=== PATIENT | female | born 1995 | race Caucasian/White ===

== ENCOUNTER 2023-01-21 09:51 | Outpatient (AMB) | payer OTHER, SELFPAY ==
--- NOTE | 2023-01-21 09:54 | MHC.PC.OV ---
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 She would like therapy reference, too. 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 None Last office visit/CPE: None in 10 yrs Acute issue(s): Blood in stools Hemorrhoids Referral for therapy Migraines. Tension Migraines. Has seen Dr Haddad. Has had PT. Uses Rizatriptan. Depression & Anxiety. Had therapist for loss of her father and would like a therapist. PMHx: Anxiety, Depression, Migraines, Acne, Hemorrhoids,.Pylonidal cyst SurgHx: x 2. FHx: Mom: Bipolar, Depression, Fibromyalgia, CVA, PreDM. Dad: CAD, NE age 34, HTN, HLD. GM Breast CA SocHx: Nonsmoker, EtOH Rare 1-3. No Drugs PFSH Medical History (Updated 01/21/23 @ 10:40 by Allan Perez) delivery delivered delivery delivered Migraines Pilonidal cyst Family History (Updated 01/21/23 @ 10:12 by Anna Dove [facility]) Mother Bipolar 1 disorder Depression Stroke Blood clot embolism due to and not concurrent with molar Fibromyalgia Mental health disorder Father Heart attack High cholesterol Brother Alcoholism Substance use disorder Social History Housing: House Patient Tobacco Use Status: Never used Tobacco e-Cigarette/Vaping Use: Never Used service: No Current occupational status: employed 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 1. Little interest or pleasure in doing things: not at all 2. Feeling down, depressed, or hopeless: several days 3. Trouble falling or staying asleep, or sleeping too much: not at all 4. Feeling tired or having little energy: not at all 5. Poor appetite or overeating: not at all 6. Feeling bad about yourself - or that you are a failure or have let yourself or your family down: several days 7. Trouble concentrating on things, such as reading the newspaper or watching television: several days 8. Moving or speaking so slowly that other people could have noticed. Or the opposite - being so fidgety or restless that you have been moving around a lot more than usual: not at all 9. Thoughts that you would be better off or of hurting yourself in some way: not at all Total score: 3 Source: Developed by Drs. Didier Beckwith, Heike Perkins, Kirill Angelo and colleagues, with an educational fay from [employer]. Thrive Questionnaire I am a: Patient What is your living situation today?: I have a steady place to live Within the past 12 months, did the food you bought not last and you didn't have the money to get more?: Never true Within the past 12 months, did you worry whether your food would run out before you got money to buy more?: Never true Do you have trouble paying for medicines?: No Do you have trouble getting transportation to medical appointments?: No Do you have trouble paying your heating and electricity bill?: No Do you have trouble taking care of your child, family member or friend?: No Do you have trouble with day-to-day activities such as bathing, preparing meals, shopping, managing finances, etc.?: No Are you currently unemployed and looking for a job?: No Are you interested in more education?: No AUDIT C Alcohol Use Questionnaire (AUDIT-C) 1. How often do you have a drink containing alcohol?: Monthly or less 2. How many drinks containing alcohol do you have on a typical day when you are drinking?: 3 or 4 3. How often do you have six or more drinks on one occasion?: Less than monthly Total Score: 3 PRIYANKA-7 AMB Questionnaire PRIYANKA-7 Feeling nervous, anxious, or on edge: 2 = More than half the days Not being able to stop or control worryin = More than half the days Worrying too much about different things: 2 = More than half the days Trouble relaxin = Several days Being so restless that it is hard to sit still: 0 = Not at all Becoming easily annoyed or irritable: 0 = Not at all Feeling afraid as if something awful might happen: 1 = Several days Total PRIYANKA-7 score (0-4 normal; 5-9 mild; 10-14 moderate; 15-21 severe): 8 Source: Developed by Drs. Didier Beckwith, Heike Perkins, Kirill Angelo and colleagues, with an educational fay from [employer]. Physical exam (Primary Care) Vital Signs: Last Vital Signs Pulse 70 01/21/23 09:57 BP 120/64 01/21/23 09:57 Pulse Ox 99 01/21/23 09:57 Oxygen Delivery Method Room Air 01/21/23 09:57 BMI result Body Mass Index 29.3 Tobacco/Smoking Status: Tobacco use Status Tobacco use date assessed 01/21/23 01/21/23 10:19 Patient Tobacco Use Status Never used Tobacco 01/21/23 10:19 e-Cigarette/Vaping Use Never Used 01/21/23 10:19 PHQ-9: PHQ-9 Score PHQ-9: Total score 3 01/21/23 10:21 Assessment and Plan Assessment & Plan (1) Bloody stools: Code(s): K92.1 - Melena Plan: Bloody stools and history of hemorrhoids Check CBC Will refer to GI to rule out any other causes Can consider referral to surgery (2) Migraines: Code(s): G43.909 - Migraine, unspecified, not intractable, without status migrainosus Plan: Fairly stable on rizatriptan and exercises learned in physical therapy She will let me know if she is having any worsening of her condition and we can consider other treatments and or a referral to a new neurologist. (3) Hemorrhoids: Code(s): K64.9 - Unspecified hemorrhoids Plan: As above (4) Depression with anxiety: Code(s): F41.8 - Other specified anxiety disorders Plan: Will refer her to the nurse navigator for connection with a therapist (5) Laboratory exam ordered as part of routine general medical examination: Code(s): Z00.00 - Encounter for general adult medical examination without abnormal findings Plan: Check labs Orders: Orders Comprehensive [place]. Panel Fast Today Z00.00 - Encounter for general adult medical examination without abnormal findings Complete Blood Count Auto Diff Today Z00.00 - Encounter for general adult medical examination without abnormal findings Lipid Panel Today Z00.00 - Encounter for general adult medical examination without abnormal findings Microalbumin, Random (w Creat) Today I10 - Essential (primary) hypertension UA and rflx microscopic Today Z00.00 - Encounter for general adult medical examination without abnormal findings TSH reflex Free T4 Today Z00.00 - Encounter for general adult medical examination without abnormal findings Referrals Gastroenterology Referral K64.9 - Unspecified hemorrhoids, K92.1 - Melena Nurse Navigator Referral F41.8 - Other specified anxiety disorders Medications: New rizatriptan do not exceed 4 doses per 24 hrs 5 mg PO Q2-4H PRN 12 tabs 4RF migraine headache 30 days Coding Level of Care Code New Pt Level 4 (27237) Diagnoses Bloody stools K92.1 Migraines G43.909 Hemorrhoids K64.9 Depression with anxiety F41.8 Laboratory exam ordered as part of routine general medical examination Z00.00
[2023-01-21 09:57] VITALS: BP 120/64; PULSE 70; O2SAT 99; BMI 29.3
== END 2023-01-21 10:47 | disposition home or self-care (01) ==
PROVIDERS: Visit Provider Family Medicine
DX: K92.1 Melena (principal); G43.909 Migraine, unspecified, not intractable, without status migrainosus; K64.9 Unspecified hemorrhoids; F41.8 Other specified anxiety disorders; Z00.00 Encounter for general adult medical examination without abnormal findings
CPT/HCPCS: 99204

== ENCOUNTER 2023-03-17 07:43 | Outpatient (AMB) | payer OTHER, SELFPAY ==
--- NOTE | 2023-03-17 07:46 | MHC.OFFVIS ---
Intake Vital Signs 03/17/23 07:55 Height 5 ft 5 in Weight 173 lb BMI 28.8 BP 127/68 Blood Pressure Location Lt brachial Position Sitting Pulse 87 Intake Visit Reasons: Melena/hemorrhoids Intake Note: Patient new consult for Melena/ Hemorrhoids Patient cc: abdominal pain/bloating, bloody hemorrhoids and discomfort. 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: No Accompanied by: Self / Same As Patient Allergies No Known Allergies Allergy (Verified 03/17/23 07:45) Medication List - Last Reconciled 03/17/23 by Megan Griffin PA-C imiquimod 5% 1 appl topical 2XW rizatriptan 5 mg PO Q2-4H PRN 30 days spironolactone 50 mg PO DAILY HPI HPI Comments History of Present Illness Details A 27 y/o female external hemorrhoids since HS- she has always dealt with it-- preparation H- wiopesSince 2019 and another 2021-- pnv causing constipation- She has had blood mixed in the stool since HS as well-she has no real abdominal pain, mild cramping- She is concerned she may ulcer in the colon. 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: No Hearing needs: No Vision needs: No Review of Systems Const All systems reviewed & are unremarkable except as noted in HPI and below Card Denies chest pain and Denies dyspnea Resp Denies dyspnea GI Denies abdominal pain, Reports hematochezia, Reports constipation, Reports GI cramping (Mild), Denies heartburn, Denies nausea, Denies vomiting and Reports other (hemorrhoids) Physical Exam Vital Signs: Last Vital Signs Pulse 87 03/17/23 07:55 BP 127/68 03/17/23 07:55 BMI result Body Mass Index 28.8 Const General: cooperative, healthy appearing, comfortable and no acute distress Orientation/consciousness: patient oriented x3 Limitations: no limitations Eyes Sclerae: sclerae normal Resp Effort & Inspection: normal respiratory effort and able to speak in complete sentences Auscultation: clear to auscultation bilaterally, no rales, no rhonchi and no wheezes Cardio Rate: regular rate Rhythm: regular rhythm Heart sounds: S1 normal heart sound present and S2 normal heart sound present GI Palpation (GI): Soft to palpation and nontender Auscultation: normal bowel sounds Skin General skin exam: no rashes or lesions noted Neuro General: patient oriented x3 Extrem General: Yes full ROM Psych Appearance: grossly normal and well kempt Mental Status: mental status grossly normal Speech and movement: Normal speech and movement present and Clear speech present Affect: normal affect Attitude: cooperative Thought process: Normal thought process present Thought content: Normal thought content present Insight: Good insight present (Psych) Judgement: Good judgement present (Psych) Assessment & Plan Assessment & Plan (1) Bloody stools: Comment: Hematochezia persistent, may be hemorrhoidal however needs further eval rule out IBD Code(s): K92.1 - Melena Plan: May likely be hemorrhoidal, bloody stools intermittent cramping- greater than 10 years Due for labs with PCP will add CRP and ESR Colonoscopy- (2) Hemorrhoids: Comment: Maintain high-fiber A fiber supplement Refer to surgery for consult Code(s): K64.9 - Unspecified hemorrhoids Plan: Maintain high-fiber Fiiber supplement Avoid straining Rectal cream Refer to surgery for hemorrhoid consult Orders: Orders C Reactive Protein Today K92.1 - Melena Thyroid Stimulating Hormone Today R19.8 - Other specified symptoms and signs involving the digestive system and abdomen Colonoscopy - GI Use Only Today Z12.11 - Encounter for screening for malignant neoplasm of colon Erythrocyte Sedimentation Rate Today K92.1 - Melena Referrals General Surgery Referral K64.9 - Unspecified hemorrhoids Medications: New methylcellulose (laxative) (Citrucel) 500 mg PO TID 30 days 90 tabs 5RF bisacodyl (Dulcolax (bisacodyl)) Take 4 tablets by mouth at 12:00pm the day before your procedure. 20 mg (4 x 5 mg) PO ONCE 1 day 4 tabs 0RF colonoscopy prep Z12.11 - Encounter for screening for malignant neoplasm of colon polyethylene glycol 3350 (Miralax) Take as directed by mouth the day before your procedure. 238 grams PO ONCE 1 day PRN 238 grams 0RF laxative effect docusate sodium (Colace) 200 mg (2 x 100 mg) PO BEDTIME 60 caps 5RF hydrocortisone 2.5% (Proctosol HC) 1 appl IN BEDTIME PRN 30 grams 3RF hemorrhoids Patient Instructions: diagnostic colonoscopy r/o IBD Discussed procedure, rare risks, need for escorted due to anesthesia, prep, prep instructions given Maintain high-fiber diet fiber supplement Avoids straining Hydrocortisone cream Refer to surgery for consult Coding Level of Care Code Est Pt Level 3 (91813) Diagnoses Bloody stools K92.1 Hemorrhoids K64.9 Time Spent (min) 40
[2023-03-17 07:55] VITALS: BP 127/68; PULSE 87; BMI 28.8
== END 2023-03-17 11:20 | disposition home or self-care (01) ==
LOC: HO.HGIW 07:43
PROVIDERS: PCP Family Medicine; Visit Provider Physician Assistant
DX: K92.1 Melena (principal); K64.9 Unspecified hemorrhoids
CPT/HCPCS: 99213

== ENCOUNTER → 2023-03-17 07:43 | Outpatient (BNVA) | payer OTHER, SELFPAY | PROVIDERS: PCP Family Medicine; Visit Provider Physician Assistant ==

== ENCOUNTER 2023-04-02 07:05 | Outpatient (REF) | payer OTHER, SELFPAY ==
[2023-04-02 11:11] LABS: MANUAL DIFF FLAG NO
[2023-04-02 11:24] LABS: Appearance Urine Cloudy; Color Urine Yellow; Glucose Urine UA Negative (Negative); Leukocyte Esterase Urine Negative (Negative); Nitrite Urine Negative (Negative); Urine Blood Negative (Negative); Urine Ketones Negative (Negative); Urine Protein Negative (Neg-Trace)
[2023-04-02 11:26] LABS: Basophils Percent Auto 0.7 % (0-2); Eosinophils Absolute Auto 0.1 X10*3/uL (0.0-0.4); Eosinophils Percent Auto 1.7 % (0-4); Hematocrit 38.6 % (37.0-47.0); Hemoglobin 12.7 g/dl (12.0-16.0); Imm Gran Abs Auto 0.01 X10*3/uL (0.00-0.03); Imm Gran Pct Auto 0.2 % (0.0-0.4); Lymphocytes Absolute Auto 1.6 X10*3/uL (1.2-4.9); Lymphocytes Percent Auto 28.9 % (20-40); Mean Corpuscular HGB Conc 32.9 g/dl (31.0-35.0); Mean Corpuscular Hemoglobin 29.2 pg (27.0-33.0); Mean Corpuscular Volume 88.7 fL (80.0-98.0); Mean Platelet Volume 10.8 fL (9.4-12.3); Monocytes Absolute Auto 0.4 X10*3/uL (0.1-1.2); Monocytes Percent Auto 8.2 % (2-11); Neutrophils Absolute Auto 3.3 x10*3/uL (2.0-8.3); Neutrophils Percent Auto 60.3 % (45-73); Platelet Count 280 X10*3/uL (160-400); Red Blood Count 4.35 X10*6/uL (4.20-5.50); Red Cell Distribution Width 12.6 % (11.0-16.0); White Blood Count 5.4 X10*3/uL (4.8-10.8)
[2023-04-02 12:05] LABS: Erythrocyte Sedimentation Rate 5 MM/HR (0-20)
[2023-04-02 12:35] LABS: Alanine Aminotransferase 10 U/L (0-31); Albumin Level 4.2 g/dL (3.5-5.0); Alkaline Phosphatase 48 U/L (39-117); Anion Gap 11 (12-20); Aspartate Amino Transferase 13 U/L (5-31); Bilirubin Total 0.7 mg/dL (0.0-1.0); Blood Urea Nitrogen 12 mg/dL (9-16); C Reactive Protein < 0.10 mg/dL (< or = 0.50); Calcium 9.4 mg/dL (8.4-10.2); Carbon Dioxide 25 mmol/L (22-29); Chloride 108 mmol/L (96-108); Cholesterol 105 mg/dL (<200); Estimated Glomerular Filt Rate > 60; Glucose Fasting 87 mg/dL (60-99); HDL Cholesterol 53 mg/dL (>40); LDL Cholesterol Calculated 41 mg/dL (<100); Potassium 4.1 mmol/L (3.3-5.1); Sodium 140 mmol/L (135-145); Thyroid Stimulating Hormone 1.53 uIU/mL (0.32-4.0); Triglycerides 59 mg/dL (<150)
[2023-04-02 12:38] LABS: TSH reflex Free T4 1.54 uIU/mL (0.32-4.0)
[2023-04-02 13:08] LABS: Creatinine Urine 118.97 mg/dL
== END 2023-04-02 07:06 | disposition home or self-care (01) ==
LOC: HO.WFDLDS 07:05
PROVIDERS: Family Medicine; Visit Provider Physician Assistant
DX: Z00.00 Encounter for general adult medical examination without abnormal findings (principal); R19.8 Other specified symptoms and signs involving the digestive system and abdomen; K92.1 Melena; I10 Essential (primary) hypertension
CPT/HCPCS: 36415; 80053; 80061; 81003; 82043; 82570; 84443; 85025; 85652; 86140

== ENCOUNTER 2023-04-09 10:53 | Outpatient (AMB) | payer OTHER, SELFPAY ==
--- NOTE | 2023-04-09 10:58 | A.OFFPC_ITS ---
Vital Signs 04/09/23 11:08 Height 5 ft 5 in Weight 171 lb 4 oz BMI 28.5 BP 120/78 Blood Pressure Location Rt brachial Position Sitting Pulse 74 Pulse Source Pulse Oximeter Temp 98.5 F Temp Source Oral Pulse Oximetry (%) 100 Oxygen Delivery Method Room Air Intake Visit Reasons: CPE with f/u labs and health maintenance Intake Note: Patient is here for her physical today. Patient would like her flu shot today. Allergies No Known Allergies Allergy (Verified 04/09/23 11:11) Tobacco use date assessed: 04/09/23 HPI CPE with f/u labs and health maintenance HPI Details 27 y/o female presents for a CPE with f/ u labs and health maintenance. Labs were drawn 04/02/23. Reviewed labs with pt. Triglycerides 59. TC 105. LDL 41. HDL 53. Pt reports ongoing blood in her stools. She is up to date with her pap smear. 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 Hearing needs: No Vision needs: No Review of Systems Const Denies chills, Denies fatigue, Denies fever(s), Denies headache(s) and Denies w eakness Eyes Denies change in vision ENT Denies dizziness, Denies headache(s), Denies hearing loss, Denies nasal congestion, Denies sinus pain, Denies sinus pressure and Denies sore throat Card Denies chest pain, Denies lightheadedness, Denies dyspnea and Denies other (palpitations) Resp Denies cough, Denies dyspnea and Denies wheezing GI Denies abdominal pain, Denies melena, Denies hematochezia, Denies change in bowel habits, Denies dyspepsia and Denies nausea Denies hematuria and Denies dysuria Musc Denies abnormal gait, Denies myalgias, Denies arthralgias, Denies numbness and Denies tingling Skin/Breast Denies rash, Denies unusual bruising and Denies wounds Neuro Denies abnormal gait, Denies dizziness, Denies headache(s), Denies memory loss, Denies numbness, Denies Sensory deficit (Neuro), Denies tingling and Denies weakness Psych Denies anxiety, Denies depression and Denies memory loss Endo Denies cold intolerance, Denies fatigue, Denies heat intolerance, Denies polydipsia and Denies polyuria Jarrell/Lymph Denies easy bleeding and Denies easy bruising Aller/Immun Denies wheezing Physical exam (Primary Care) Vital Signs: Last Vital Signs Temp 98.5 F 04/09/23 11:08 Pulse 74 04/09/23 11:08 BP 120/78 04/09/23 11:08 Pulse Ox 100 04/09/23 11:08 Oxygen Delivery Method Room Air 04/09/23 11:08 BMI result Body Mass Index 28.5 Tobacco/Smoking Status: Tobacco use Status Tobacco use date assessed 04/09/23 04/09/23 11:12 Patient Tobacco Use Status Never used Tobacco 04/09/23 10:59 e-Cigarette/Vaping Use Never Used 04/09/23 10:59 Const General: no acute distress, well developed, alert and awake Nutritional Appearance: well nourished Orientation/consciousness: patient oriented x3 HENMT Head: Yes normocephalic and Yes atraumatic Ears: hearing grossly normal bilaterally and TM's normal bilaterally General nose exam: Normal external nose present and Normal nares present Mouth: Normal oral and palatal mucosa present and moist mucous membranes Teeth and gingiva: dentition normal Throat: Yes posterior oropharynx normal Eyes General: appearance normal, both eyes and all related structures Pupils: Equal, round and reactive pupils present and Pupil accommodation reflex normal EOM: EOMs intact bilaterally Neck Neck: Yes normal visual inspection, Yes no lymphadenopathy and Yes trachea midline Thyroid: Thyroid normal Carotids: no bruits Lymphatic: no lymphadenopathy noted Chest Chest palpation & inspection: normal inspection of the chest Resp Effort & Inspection: normal respiratory effort Auscultation: clear to auscultation bilaterally Cardio Rate: regular rate Rhythm: regular rhythm Heart sounds: S1 normal heart sound present, S2 normal heart sound present, no gallops, no murmurs and no rubs Bruits: no abdominal aortic bruits and no carotid bruits GI Palpation (GI): No Abdominal aortic bruit present, Soft to palpation, nontender, No hepatosplenomegaly present and No Rebound tenderness present Auscultation: normal bowel sounds General: Yes no CVA tenderness Back/Spine/Pelvis Back: no CVA tenderness Cervical Spine: cervical ROM normal and No Cervical spine tenderness Thoracic/Lumbar Spine: thoraco-lumbar ROM normal, No pain with thoraco-lumbar ROM, No thoracic spinal tenderness and No lumbar spinal tenderness Skin Lesions: no lesions Rashes: no rashes Trauma: no lacerations or abrasions Wounds: no wounds Nails: normal Neuro General: patient oriented x3 Cranial nerves: Yes Equal, round and reactive pupils present Cognition (Neuro): normal cognition Gait exam (Neuro): Normal gait present Motor exam (neuro): 5/5 motor strength present throughout Sensory Exam: No Sensory deficit (Neuro) Deep tendon reflexes (DTR's): Right patellar reflex intensity grade: 2+ and Left patellar reflex intensity grade: 2+ Extrem General: Yes normal to inspection and No edema Psych Appearance: grossly normal Affect: normal affect Attitude: cooperative Thought process: Normal thought process present Assessment and Plan Assessment & Plan (1) Adult general medical exam: Code(s): Z00.00 - Encounter for general adult medical examination without abnormal findings Plan: 27-year-old?female?presents?for?complete?physical?exam (2) Bloody stools: Comment: Hematochezia persistent, may be hemorrhoidal however needs further eval rule out IBD Code(s): K92.1 - Melena Plan: Has?ongoing?blood?in?stools.??She?does?have?hemorrhoids?and?was?advised?to?keep? stools?soft?and?well?hydrated She?will?continue?to?work?at?this. CBC?was?normal?however?so?I?reassured?her?that?her?blood?loss?has?not?been?exten sive She?has?an?appointment?with?surgery?and?has?already?seen?gastroenterology.??GI?i ntends?to?perform?c olonoscopy?but?she?has?not?been?scheduled?for?this?and?I?advised?her?to?call?GI Reiterated?that?she?needs?to?keep?stools?soft?and?increase?water?intake. (3) Depression with anxiety: Code(s): F41.8 - Other specified anxiety disorders Plan: She?was?contacted?by?the?nurse?navigator?but?has?n ot?return?their?call.??She?can?follow- up?with?them?to?get?connected?with?a?therapist. We?discussed?again?that?if?she?is?interested?in?using?medication,?she?can?make?a n?appointment?for?this (4) Screening for cervical cancer: Code(s): Z12.4 - Encounter for screening for malignant neoplasm of cervix Plan: Had?Pap?smear?with?her?truck driver teamster?a?year?ago.??She?says?this?was?negative. Up-to-date.??Follow-up?with?truck driver teamster (5) Immunization counseling: Code(s): Z71.85 - Encounter for immunization safety counseling Plan: Due?for?flu?shot?and?she?will?receive?this?today Orders: Orders Influenza [id number] Immunization Today Z23 - Encounter for immunization Medications: New flu vacc [id number] 6mos up(PF) 0.5 mL IM ONCE 0.5 mL 0RF Z23 - Encounter for immunization Coding Level of Care Code Est Pt Prev Care 18-39y(92587) Diagnoses Adult general medical exam Z00.00 Bloody stools K92.1 Depression with anxiety F41.8 Screening for cervical cancer Z12.4 Immunization counseling Z71.85
[2023-04-09 11:08] VITALS: BP 120/78; PULSE 74; TEMP 36.9; O2SAT 100; BMI 28.5
== END 2023-04-09 11:54 | disposition home or self-care (01) ==
PROVIDERS: PCP Family Medicine; Visit Provider Family Medicine
DX: Z00.00 Encounter for general adult medical examination without abnormal findings (principal); K92.1 Melena; F41.8 Other specified anxiety disorders; Z71.85 Encounter for immunization safety counseling; Z23 Encounter for immunization
CPT/HCPCS: 90471; 90686; 99395

== ENCOUNTER 2023-04-09 15:34 | Outpatient (AMB) | payer OTHER, SELFPAY ==
[2023-04-09 15:37] VITALS: BP 131/64; PULSE 85; BMI 28.6
--- NOTE | 2023-04-09 15:37 | MHC.OFFVIS ---
Intake Vital Signs 04/09/23 15:37 Height 5 ft 5 in Weight 172 lb BMI 28.6 BP 131/64 Blood Pressure Location Rt brachial Position Sitting Pulse 85 Intake Visit Reasons: Hemorrhoids Intake Note: This patient presents for an assessment for hemorrhoids. Patient c/o; Onset 10 years,reports rectal bleeding, reports no straining with bowel movements. [place] [employer] Required: No Accompanied by: Self / Same As Patient Allergies No Known Allergies Allergy (Verified 04/09/23 15:44) Medication List - Last Reconciled 04/09/23 by Minor Bardales MD bisacodyl (Dulcolax (bisacodyl)) 20 mg (4 x 5 mg) PO ONCE 1 day docusate sodium (Colace) 200 mg (2 x 100 mg) PO BEDTIME hydrocortisone 2.5% (Proctosol HC) 1 appl PA BEDTIME PRN imiquimod 5% 1 appl topical 2XW methylcellulose (laxative) (Citrucel) 500 mg PO TID 30 days polyethylene glycol 3350 (Miralax) 238 grams PO ONCE PRN 1 day rizatriptan 5 mg PO Q2-4H PRN 30 days spironolactone 50 mg PO DAILY HPI Hemorrhoids HPI Details 27 year old female referred for hemorrhoids. She says that she knows she has had hemorrhoids in she was in high school. However, she was 3 years ago and she noticed that her hemorrhoids became a lot more swollen. She would notice periodic bleeding as well. She was again about 1 or 2 years ago. She has since notice more frequent swelling, pain and discomfort along with bleeding with her hemorrhoids. She denies being chronically constipated. She does admit that she feels that her hemorrhoid symptoms are becoming significantly worse. [facility] Medical History (Updated 04/09/23 @ 15:59 by Minor Bardales MD) Hemorrhoids with complication delivery delivered Migraines delivery delivered Pilonidal cyst Surgical History H/O section History of surgical removal of pilonidal cyst Family History Mother Bipolar 1 disorder Depression Stroke Blood clot embolism due to and not concurrent with molar Fibromyalgia Mental health disorder Father Heart attack High cholesterol Brother Alcoholism Substance use disorder Other Cancer Social History Housing: House Patient Tobacco Use Status: Never used Tobacco e-Cigarette/Vaping Use: Never Used service: No Current occupational status: employed 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 Cognitive needs: No Hearing needs: No Vision needs: No Review of Systems Const Denies chills and Denies fever(s) Card Denies chest pain, Denies dyspnea and Denies dyspnea on exertion Resp Denies cough, Denies dyspnea and Denies dyspnea on exertion GI Reports hematochezia and Denies change in bowel habits Denies hematuria Musc Denies back pain and Denies limited range of motion Neuro Denies focal weakness and Denies convulsions Psych Denies depression and Denies mood swings Physical Exam Const General: comfortable and no acute distress Orientation/consciousness: patient oriented x3 Neck Neck: Yes no lymphadenopathy Resp Auscultation: clear to auscultation bilaterally Cardio Rhythm: regular rhythm GI Other: Rectal exam shows external hemorrhoids, very prominent on the left, and right anterior and right posterior Palpation (GI): Soft to palpation, nontender and no guarding Neuro General: patient oriented x3 Office Procedures Anoscopy She was in shweta-knife position. The anoscope was gently inserted. A full examination of the anal canal was done. She did have a mix of internal and external hemorrhoid columns which were moderate size. There was 1 on the left lateral, 1 on the right posterior and 1 on the right anterior. There were no other lesions. She has good sphincter tone. There was no bleeding. There was no induration. [id number] Assessment & Plan Assessment & Plan (1) Hemorrhoids with complication: Code(s): K64.8 - Other hemorrhoids Plan: She describes worsening symptoms with her hemorrhoids. She describes frequent swelling, pain and bleeding. She is thinking of proceeding with hemorrhoidectomy I explained the technique of exam under anesthesia and hemorrhoidectomy. I reviewed with her the risks including but not limited to bleeding, infections, postop pain, poor healing, as well as the benefits and alternatives. I also had a discussion with her as to what to expect postoperatively is specially with regards to care. She says she will think about it and will call me in the office once she decides to proceed. Coding Level of Care Code New Pt Level 3 (38864) Diagnoses Hemorrhoids with complication K64.8 CPT Codes Details - CPT: 45743-[id number] ([id number])
== END 2023-04-09 15:56 | disposition home or self-care (01) ==
PROVIDERS: PCP Family Medicine; Referring Provider Physician Assistant; Visit Provider Surgery
DX: K64.8 Other hemorrhoids (principal)
CPT/HCPCS: 46600; 99203

== ENCOUNTER → 2023-04-09 15:34 | Outpatient (BNVA) | payer OTHER, SELFPAY | PROVIDERS: PCP Family Medicine; Referring Provider Physician Assistant; Visit Provider Surgery | DX: K64.8 Other hemorrhoids (principal); K64.4 Residual hemorrhoidal skin tags | CPT/HCPCS: 46600 ==

== ENCOUNTER 2023-07-15 09:04 | Day surgery (SDC) | payer OTHER, SELFPAY ==
[2023-07-13 13:59] VITALS: BMI 28.5
--- NOTE | 2023-07-14 13:00 | HO.ANESPROP2 ---
Documented by User: Aleida Casey NP 07/14/23 13:01 HPI - Anesthesia Eval Consult details Narrative: 28yo F for Colonoscopy PMFSH Active Problems Active Problems: All Active Problems (Updated 07/13/23 @ 13:56 by Lilliana Draper RN) Screening for cervical cancer (Acute) Immunization counseling (Acute) Adult general medical exam (Acute) Laboratory exam ordered as part of routine general medical examination (Acute) Depression with anxiety (Acute) Hemorrhoids (Acute) Bloody stools (Acute) Hemorrhoids with complication (Acute) Migraines (Acute) Past Medical History Medical History Hemorrhoids with complication Migraines Pilonidal cyst Family History Family History Mother Bipolar 1 disorder Depression Stroke Blood clot embolism due to and not concurrent with molar Fibromyalgia Mental health disorder Father Heart attack High cholesterol Brother Alcoholism Substance use disorder Other Cancer Surgical History Surgical History H/O section History of surgical removal of pilonidal cyst Social History Social History Housing: House Patient Tobacco Use Status: Never used Tobacco e-Cigarette/Vaping Use: Never Used Advance Directives: No Advance Directives Information Provided: Yes service: No Current occupational status: employed 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 needs: No Hearing needs: No Vision needs: No Meds Allergies Allergy/AdvReac Type Severity Reaction Status Date / Time No Known Allergies Allergy Verified 07/15/23 09:27 Home Medications Medication Instructions Recorded Confirmed Last Taken Type imiquimod 5 % topical cream packet 1 appl topical 2XW 01/21/23 07/13/23 Unknown History spironolactone 50 mg tablet 50 mg PO DAILY 01/21/23 07/13/23 Unknown History Exam Height,Weight and Vital Signs: Height 5 ft 5 in Weight 77.564 kg Pertinent Lab Results Pertinent Lab Results: Laboratory Tests 04/02/23 07:00 WBC 5.4 Hgb 12.7 Hct 38.6 Plt Count 280 Sodium 140 Potassium 4.1 Chloride 108 Carbon Dioxide 25 BUN 12 Creatinine 0.75 Assessment and Plan Assessment Anesthesia Assessment: Chart Reviewed Documented by User: Larissa De Jesus MD 07/15/23 09:47 PMFSH Past Medical History Medical History Hemorrhoids with complication Migraines Pilonidal cyst Family History Family History Mother Bipolar 1 disorder Depression Stroke Blood clot embolism due to and not concurrent with molar Fibromyalgia Mental health disorder Father Heart attack High cholesterol Brother Alcoholism Substance use disorder Other Cancer Family history of problems with anesthesia: No Surgical History Surgical History H/O section History of surgical removal of pilonidal cyst History of Problems with Anesthesia: No Social History Social History Housing: House Patient Tobacco Use Status: Never used Tobacco e-Cigarette/Vaping Use: Never Used Advance Directives: No Advance Directives Information Provided: Yes service: No Current occupational status: employed 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 needs: No Hearing needs: No Vision needs: No Meds Allergies Allergy/AdvReac Type Severity Reaction Status Date / Time No Known Allergies Allergy Verified 07/15/23 09:27 Home Medications Medication Instructions Recorded Confirmed Last Taken Type imiquimod 5 % topical cream packet 1 appl topical 2XW 01/21/23 07/13/23 Unknown History spironolactone 50 mg tablet 50 mg PO DAILY 01/21/23 07/13/23 Unknown History Exam Airway Mallampati Class: II (one cap bottom laterally) TM Dist: >3cm Neck ROM: Full Heart: rrr Lungs: cta Assessment and Plan Assessment Anesthesia Assessment: Anesthesia Plan Discussed Final Anesthetic Review Family History of Problems with Anesthesia: No History of Problems with Anesthesia: No NPO: Yes ASA Class: II Final Preanesthetic Review: No Changes in Pt Med Stat, Meds/Allgs Chart Reviewed and Consent Obtained/Reviewed Patient Risk: Intermediate Procedure Risk: Intermediate Anesthetic Plan Anesthetic Plan: MAC: Disposition: Standard PACU
[2023-07-15 09:37] VITALS: BMI 27.7
[2023-07-15 09:40] LABS: UPreg QC Valid YES; Urine Pregnancy NEGATIVE (NEGATIVE)
--- NOTE | 2023-07-15 09:40 | P.HPSUR_ITS ---
Pre-Procedural Eval Section A - 24 Hr Update-Section A only Date of Service: 07/15/23 Section B - Complete if H&P > 30 days Chief Complaint: Unspecified hemorrhoids Relevant Family History (Specify if Yes): No Relevant Social History: None Present Medications: see Short Stay Collaborative assessment Medical History: Significant History (Migraines delivery delivered Pilonidal cyst) History of Previous Operations: Relevant previous surgery/procedure and date(s) (c section ) Allergies: Allergies Allergy/AdvReac Type Severity Reaction Status Date / Time No Known Allergies Allergy Verified 07/15/23 09:27 Review of Systems Sugical H&P ROS: Negative: Constitution, Cardiovascular, Respiratory, Neurological, Psychiatric, Hem-Onc, Allergic/Immunologic, Gastrointestinal, Genitourinary, Musculoskeletal, Integumentary, Endocrine and Eyes/Ears/Nose/Thr oat Exam Surgical H&P Exam: Normal: HEENT, Normal: Heart, Normal: Lungs, Normal: Extremities, Normal: Abdomen, Normal: Skin and Normal: Neurological Plan Diagnosis/Plan: Unchanged I have reviewed the history and physical and performed a pertinent physical examination on my patient. No changes have occurred unless specified. Time Spent With Patient Time: Total time managing care of this patient today ____ minutes.
[2023-07-15 09:44] VITALS: BP 127/84; PULSE 80; RESP 16; TEMP 37.1; O2SAT 99
--- NOTE | 2023-07-15 09:46 | W.PM.OPN ---
Operative Note Operative Note Date of Service: 07/15/23 Narrative: Operative Information Procedure Description: Colonoscopy Indication: rectal bleeding Anesthesia: MAC COLONOSCOPY Instrument: Olympus variable stiffness pediatric scope 190L Colonoscopy Monitoring: Vital signs and clinical assessment, continuous EKG monitoring, Pulse oximetry, Carbon Dioxide monitoring and blood pressure monitoring were done throughout the procedure. Colon withdrawal time was 8 minutes. Procedure: The patient was placed in the left lateral decubitis position and pre-procedure medications were administered. After a digital rectal examination of the ano-rectum, the video colonoscope was inserted into the rectum and advanced through the colon to the cecum/TI. The colonoscope was slowly withdrawn in a retrograde panoramic fashion and the colon mucosa was carefully examined including a retroflexed view of the rectum. Findings and interventions are described below. Procedure Difficulty: easy Findings: Terminal Ileum-normal Cecum:normal Ascending Colon: normal Transverse Colon -normal Descending Colon:normal Sigmoid Colon: normal Rectum: Retroflexion with large inflammed internal hemorrhoids, grade I Anorectum - normal Colon preparation: [place] Bowel Preparation Scale Right colon; 2 Transverse colon: 3 Left colon; 3 (0 = Unprepared colon segment with mucosa not seen due to solid stool that cannot be cleared. 1 = Portion of mucosa of the colon segment seen, but other areas of the colon segment not well seen due to staining, residual stool and/or opaque liquid. 2 = Minor amount of residual staining, small fragments of stool and/or opaque liquid, but mucosa of colon segment seen well. 3 = Entire mucosa of colon segment seen well with no residual staining, small fragments of stool or opaque liquid) Impression and Post Procedure Diagnosis: internal hemorrhoids Plan: High fiber diet leaflet Avoid straining at stool, epsom salts and sitz bath, anusol supps or cream Repeat Colonoscopy aged 45 for screening or earlier if clinically indicated follow up Dr Bardales for hemorrhoidectomy Above findings were reviewed with the patient and relevant handouts were provided if indicated.
[2023-07-15] MEDS: Lactated Ringers 1,000 ML 100 ML IVCONT (10:01)
[2023-07-15 10:28] VITALS: BP 114/60; PULSE 101; RESP 16; TEMP 36.1; O2SAT 98
[2023-07-15 10:43] VITALS: BP 108/67; PULSE 97; RESP 16; TEMP 36.1; O2SAT 97
== END 2023-07-15 11:14 | disposition home or self-care (01) ==
PROVIDERS: Nurse Practitioner; PCP Family Medicine; Visit Provider Internal Medicine Gastroenterology
PROC: 0DJD8ZZ Inspection of Lower Intestinal Tract, Via Natural or Artificial Opening Endoscopic (ICD-10-PCS; CPT 45378; principal; 2023-07-15 11:10)
DX: K62.5 Hemorrhage of anus and rectum (principal); K64.0 First degree hemorrhoids; K64.4 Residual hemorrhoidal skin tags; G43.909 Migraine, unspecified, not intractable, without status migrainosus; Z79.899 Other long term (current) drug therapy; Z98.890 Other specified postprocedural states
CPT/HCPCS: 45378; 81025; J2250; J2704

== ENCOUNTER → 2023-07-15 09:04 | Outpatient (BNV) | payer OTHER, SELFPAY | PROVIDERS: PCP Family Medicine; Visit Provider Internal Medicine Gastroenterology | DX: K62.5 Hemorrhage of anus and rectum (principal); K64.0 First degree hemorrhoids | CPT/HCPCS: 45378 ==

== ENCOUNTER 2023-09-01 12:20 | Outpatient (AMB) | payer OTHER, SELFPAY ==
--- NOTE | 2023-09-01 12:27 | MHC.OFFVIS ---
Intake Intake Visit Reasons: s/p colon Intake Note: Patient follow up for Colonoscopy results. Patient denies any GI issues. [employer] Required: No Accompanied by: Self / Same As Patient Allergies No Known Allergies Allergy (Verified 09/01/23 12:27) HPI HPI Comments History of Present Illness Details A very pleased 28 y/o female with hx hemorrhoids- f/u after dx colonoscopy for rectal bleeding. We had referred her to Dr. Bardales for consult as well She has maintained a HFD- rectal creams- She saw Dr. Bardales- recommended surgery- she is holding off- has 2 small children, certainly understandable Since colonoscopy- seems gas pains more noticed and painful-possibly cramps- Bowels are fairly normal gets constipated once in awhile uses Colace-avoid straining Reviewed procedure report and recommendations She has no GI or general complaints [facility] Medical History Hemorrhoids with complication Migraines Pilonidal cyst Surgical History Hx of colonoscopy H/O section History of surgical removal of pilonidal cyst Family History Mother Bipolar 1 disorder Depression Stroke Blood clot embolism due to and not concurrent with molar Fibromyalgia Mental health disorder Father Heart attack High cholesterol Brother Alcoholism Substance use disorder Other Cancer Social History Housing: House Patient Tobacco Use Status: Never used Tobacco e-Cigarette/Vaping Use: Never Used service: No Current occupational status: employed 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: No Hearing needs: No Vision needs: No Review of Systems Const All systems reviewed & are unremarkable except as noted in HPI and below Card Denies chest pain and Denies dyspnea Resp Denies dyspnea GI Denies abdominal pain Physical Exam Alert and oriented no acute distress Const General: cooperative and healthy appearing Limitations: no limitations Psych Appearance: grossly normal and well kempt Mental Status: mental status grossly normal Speech and movement: Normal speech and movement present Affect: normal affect and Irritable affect present Attitude: cooperative Thought process: Normal thought process present Thought content: Normal thought content present Insight: Good insight present (Psych) Judgement: Good judgement present (Psych) Results Reviewed Results Reviewed: mpression and Post Procedure Diagnosis: internal hemorrhoids Plan: High fiber diet leaflet Avoid straining at stool, epsom salts and sitz bath, anusol supps or cream Repeat Colonoscopy aged 44 for screening or earlier if clinically indicated follow up Dr Bardales for hemorrhoidectomy Above findings were reviewed with the patient and relevant handouts were provided if indicated. Assessment & Plan Assessment & Plan (1) Hemorrhoids: Comment: Maintain high-fiber Code(s): K64.9 - Unspecified hemorrhoids (2) Bloody stools: Comment: hemorrhoidal Code(s): K92.1 - Melena Plan: Follow-up with Dr. Bardales Plan Repeat asymptomatic colonoscopy at age 44 Patient Instructions: Asymptomatic colonoscopy age 44 Avoid straining with hemorrhoid Maintain high-fiber diet Stool softeners and rectal cream as needed Follow-up with Dr. Bardales as recommended Encouraged to call with any questions or concerns Coding Level of Care Code Est Pt Level 3 (58938) Diagnoses Hemorrhoids K64.9 Bloody stools K92.1 Time Spent (min) 20
== END 2023-09-01 13:40 | disposition home or self-care (01) ==
PROVIDERS: PCP Family Medicine; Visit Provider Physician Assistant
DX: K64.9 Unspecified hemorrhoids (principal); K92.1 Melena
CPT/HCPCS: 99213

== ENCOUNTER → 2023-09-01 12:20 | Outpatient (BNVA) | payer OTHER, SELFPAY | PROVIDERS: PCP Family Medicine; Visit Provider Physician Assistant ==

== ENCOUNTER 2024-04-12 08:54 | Outpatient (AMB) | payer OTHER, SELFPAY ==
--- NOTE | 2024-04-12 09:18 | A.OFFPC_ITS ---
Vital Signs 04/12/24 09:22 Height 5 ft 5 in Weight 165 lb BMI 27.5 BP 102/56 L Blood Pressure Location Rt brachial Position Sitting Respiration 14 Pulse 75 Pulse Source Pulse Oximeter Temp 98.1 F Temp Source Temporal Artery Scan Pulse Oximetry (%) 99 Oxygen Delivery Method Room Air Intake Visit Reasons: CPE with f/u labs and health maintenance Intake Note: CPE Is last menstrual period known: Yes Last menstrual period: 03/24/24 Post menopausal: No Patient : No Allergies No Known Allergies Allergy (Verified 04/12/24 09:20) Tobacco use date assessed: 04/12/24 Dental Screening Dental Screen Date: 04/12/24 Did you have a dental visit in the last 12 months?: No Did you have a dental problem in the last 6 months where you did not have access to dental care?: No Was dental information given to patient?: Patient has dentist HPI CPE with f/u labs and health maintenance HPI Details 28 y/o female presents for a CPE with f/ u labs and health maintenance. No recent labs to review. Has complaints of a tick bite on L side of her neck. Notes it had been attached about 24 hours. Had been going on since of last week - about a week ago. Notes she is up to date with her pap smear. [facility] Medical History Hemorrhoids with complication Migraines Pilonidal cyst Surgical History Hx of colonoscopy H/O section History of surgical removal of pilonidal cyst Family History Mother Bipolar 1 disorder Depression Stroke Blood clot embolism due to and not concurrent with molar Fibromyalgia Mental health disorder Father Heart attack High cholesterol Brother Alcoholism Substance use disorder Other Cancer Social History (Updated 04/12/24 @ 09:[address] 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 1. Little interest or pleasure in doing things: not at all 2. Feeling down, depressed, or hopeless: not at all 3. Trouble falling or staying asleep, or sleeping too much: not at all 4. Feeling tired or having little energy: not at all 5. Poor appetite or overeating: not at all 6. Feeling bad about yourself - or that you are a failure or have let yourself or your family down: not at all 7. Trouble concentrating on things, such as reading the newspaper or watching television: not at all 8. Moving or speaking so slowly that other people could have noticed. Or the o pposite - being so fidgety or restless that you have been moving around a lot more than usual: not at all 9. Thoughts that you would be better off or of hurting yourself in some way: not at all Total score: 0 Depression Screening Interpretation: Negative Depression Screening Done: Yes 01547 - PHQ-9 Billing: Yes Source: Developed by Drs. Didier Beckwith, Heike Perkins, Kirill Angelo and colleagues, with an educational fay from [employer] Thrive Questionnaire Date Thrive assessed: 04/12/24 I am a: Patient What is your living situation today?: I have a steady place to live Within the past 12 months, did the food you bought not last and you didn't have the money to get more?: Never true Within the past 12 months, did you worry whether your food would run out before you got money to buy more?: Never true Do you have trouble paying for medicines?: No Do you have trouble getting transportation to medical appointments?: No Do you have trouble paying your heating and electricity bill?: No Do you have trouble taking care of your child, family member or friend?: No Do you have trouble with day-to-day activities such as bathing, preparing meals, shopping, managing finances, etc.?: No Are you currently unemployed and looking for a job?: No Are you interested in more education?: No Please select the resources that you would like help with: None Currently or been in a relationship where the following occur: No concerns reported THRIVE Score: 0 AUDIT C Alcohol Use Questionnaire (AUDIT-C) 1. How often do you have a drink containing alcohol?: Monthly or less 2. How many drinks containing alcohol do you have on a typical day when you are drinking?: 1 or 2 3. How often do you have six or more drinks on one occasion?: Less than monthly Total Score: 2 PRIYANKA-7 AMB Questionnaire PRIYANKA-7 Date PRIYANKA - 7 assessed: 04/12/24 Feeling nervous, anxious, or on edge: 0 = Not at all Not being able to stop or control worryin = Not at all Worrying too much about different things: 0 = Not at all Trouble relaxin = Not at all Being so restless that it is hard to sit still: 0 = Not at all Becoming easily annoyed or irritable: 0 = Not at all Feeling afraid as if something awful might happen: 0 = Not at all Total PRIYANKA-7 score (0-4 normal; 5-9 mild; 10-14 moderate; 15-21 severe): 0 Source: Developed by Drs. Didier Beckwith, Heike Perkins, Kirill Angelo and colleagues, with an educational fay from [employer]. PRIYANKA-7 Assessment Billing PRIYANKA-7 Assessment Tool: PRIYANKA-7 Assessment 02636 Physical exam (Primary Care) Vital Signs: Last Vital Signs Temp 98.1 F 04/12/24 09:22 Pulse 75 04/12/24 09:22 Resp 14 04/12/24 09:22 BP 102/56 L 04/12/24 09:22 Pulse Ox 99 04/12/24 09:22 Oxygen Delivery Method Room Air 04/12/24 09:22 BMI result Body Mass Index 27.5 Tobacco/Smoking Status: Tobacco use Status Tobacco use date assessed 04/12/24 04/12/24 09:23 Patient Tobacco Use Status Never used Tobacco 04/12/24 09:23 e-Cigarette/Vaping Use Never Used 04/12/24 09:23 PHQ-9: PHQ-9 Score PHQ-9: Total score 0 04/12/24 09:33 Depression Screening Interpretation: Negative Thrive Assessment: Date of Thrive Assessment Date Thrive assessed 04/12/24 04/12/24 09:23 Currently or been in a relationship where the following occur: No concerns reported Coding Level of Care Code Est Pt Level 3 (65049) Diagnoses Adult general medical exam Z00.00 Tick bite W57.XXXA Screening for cervical cancer Z12.4 Additional Codes PRIYANKA-7 Assessment Billing - PRIYANKA-7 Assessment Tool: PRIYANKA-7 Assessment 77701 ([id number]) Assessment & Plan Assessment & Plan (1) Adult general medical exam: Code(s): Z00.00 - Encounter for general adult medical examination without abnormal findings Category: Medical Plan: 28-year-old?female?presents?for?complete?physical?exam Exam?today?was?within?normal?limits?except?as?described?below Encouraged?healthy?diet?with?active?lifestyle?and?plenty?of?exercise (2) Tick bite: Code(s): W57.XXXA - Bitten or stung by nonvenomous insect and other nonvenomous arthropods, initial encounter Category: Medical Plan: Tick?bite?last?week?and?small bite?reaction?wound?at?left?side?of?neck.??No?erythema?migrans Will?give?her?a?prophylactic?dose?of?doxycycline Check?Lyme?titers?next?week (3) Screening for cervical cancer: Code(s): Z12.4 - Encounter for screening for malignant neoplasm of cervix Category: Medical Plan: Patient?had?a?Pap?smear?at?onset?of??in?2021. Will?be?due?for?follow-up?in?2024 Orders: Orders Microalbumin, Random (w Creat) Today I10 - Essential (primary) hypertension Complete Blood Count Auto Diff Today Z00.00 - Encounter for general adult medical examination without abnormal findings Comprehensive [place]. Panel Fast Today Z00.00 - Encounter for general adult medical examination without abnormal findings Lipid Panel Today Z00.00 - Encounter for general adult medical examination without abnormal findings TSH reflex Free T4 Today Z00.00 - Encounter for general adult medical examination without abnormal findings UA and rflx microscopic Today Z00.00 - Encounter for general adult medical examination without abnormal findings Lyme IgG/IgM w/reflex to WB Today W57.XXXA - Bitten or stung by nonvenomous ins ect and other nonvenomous arthropods, initial encounter Medications: New doxycycline hyclate 200 mg (2 x 100 mg) PO ONCE 1 day 2 tabs 0RF
[2024-04-12 09:22] VITALS: BP 102/56; PULSE 75; RESP 14; TEMP 36.7; O2SAT 99; BMI 27.5
== END 2024-04-12 09:48 | disposition home or self-care (01) ==
LOC: HO.HMCFM 08:55
PROVIDERS: PCP Family Medicine; Visit Provider Family Medicine
DX: Z00.00 Encounter for general adult medical examination without abnormal findings (principal); T63.481A Toxic effect of venom of other arthropod, accidental (unintentional), initial encounter; Z12.4 Encounter for screening for malignant neoplasm of cervix

== ENCOUNTER → 2024-04-12 08:54 | Outpatient (BNVA) | payer OTHER, SELFPAY | PROVIDERS: PCP Family Medicine; Visit Provider Family Medicine | DX: Z00.01 Encounter for general adult medical examination with abnormal findings (principal); S10.96XA Insect bite of unspecified part of neck, initial encounter; W57.XXXA Bitten or stung by nonvenomous insect and other nonvenomous arthropods, initial encounter; Y93.9 Activity, unspecified; Y92.9 Unspecified place or not applicable; Y99.9 Unspecified external cause status | CPT/HCPCS: 96127 ==

== ENCOUNTER 2024-04-28 08:10 | Outpatient (REF) | payer OTHER, SELFPAY ==
[2024-04-28 11:02] LABS: MANUAL DIFF FLAG NO
[2024-04-28 11:15] LABS: Basophils Percent Auto 0.6 % (0-2); Eosinophils Absolute Auto 0.1 X10*3/uL (0.0-0.4); Eosinophils Percent Auto 1.6 % (0-4); Hematocrit 41.5 % (37.0-47.0); Hemoglobin 13.9 g/dl (12.0-16.0); Imm Gran Abs Auto 0.01 X10*3/uL (0.00-0.03); Imm Gran Pct Auto 0.2 % (0.0-0.4); Lymphocytes Absolute Auto 1.3 X10*3/uL (1.2-4.9); Lymphocytes Percent Auto 24.7 % (20-40); Mean Corpuscular HGB Conc 33.5 g/dl (31.0-35.0); Mean Corpuscular Hemoglobin 30.2 pg (27.0-33.0); Mean Platelet Volume 10.2 fL (9.4-12.3); Monocytes Absolute Auto 0.6 X10*3/uL (0.1-1.2); Monocytes Percent Auto 11.5 % (2-11); Neutrophils Absolute Auto 3.1 x10*3/uL (2.0-8.3); Neutrophils Percent Auto 61.4 % (45-73); Platelet Count 301 X10*3/uL (160-400); Red Blood Count 4.61 X10*6/uL (4.20-5.50); Red Cell Distribution Width 12.7 % (11.0-16.0); White Blood Count 5.1 X10*3/uL (4.8-10.8)
[2024-04-28 11:53] LABS: Alanine Aminotransferase 16 U/L (0-31); Albumin Level 4.7 g/dL (3.5-5.0); Alkaline Phosphatase 47 U/L (39-117); Anion Gap 9 (12-20); Aspartate Amino Transferase 21 U/L (5-31); Blood Urea Nitrogen 11 mg/dL (9-16); Calcium 9.3 mg/dL (8.4-10.2); Carbon Dioxide 30 mmol/L (22-29); Chloride 103 mmol/L (96-108); Cholesterol 126 mg/dL (<200); Estimated Glomerular Filt Rate > 60; Glucose Fasting 83 mg/dL (60-99); HDL Cholesterol 56 mg/dL (>40); LDL Cholesterol Calculated 51 mg/dL (<100); Potassium 4.2 mmol/L (3.3-5.1); Sodium 138 mmol/L (135-145); Total Protein 7.7 g/dL (6.5-8.0); Triglycerides 99 mg/dL (<150)
[2024-04-28 11:59] LABS: TSH reflex Free T4 1.71 uIU/mL (0.32-4.0)
[2024-04-28 12:12] LABS: Appearance Urine Clear; Color Urine Yellow; Glucose Urine UA Negative (Negative); Leukocyte Esterase Urine Negative (Negative); Nitrite Urine Negative (Negative); PH 6.5 (5.0-9.0); Urine Blood Negative (Negative); Urine Ketones Negative (Negative); Urine Protein Negative (Neg-Trace)
[2024-04-28 12:15] LABS: Creatinine Urine 168.05 mg/dL; Microalbum/Creatinine Ratio Ur 4.7 ug/mg cr (<30)
[2024-04-30 01:44] LABS: Lyme Abs Screen <0.90 index
== END 2024-04-28 08:11 | disposition home or self-care (01) ==
LOC: HO.WFDLDS 08:10
PROVIDERS: Visit Provider Family Medicine
DX: Z00.00 Encounter for general adult medical examination without abnormal findings (principal); I10 Essential (primary) hypertension; T14.8XXA Other injury of unspecified body region, initial encounter; W57.XXXA Bitten or stung by nonvenomous insect and other nonvenomous arthropods, initial encounter
CPT/HCPCS: 36415; 80053; 80061; 81003; 82043; 82570; 84443; 85025; 86617; 86618

== ENCOUNTER → 2024-05-06 11:14 | Outpatient (BNVA) | payer OTHER, SELFPAY | PROVIDERS: PCP Family Medicine; Visit Provider Family Medicine ==